=== PATIENT | female | born 1990 | race Caucasian/White ===

== ENCOUNTER 2020-01-08 13:32 | Emergency (ER) | payer MEDICAID ==
[~2020-01-08] VITALS: Ht 154.9 cm; Wt 59.4 kg
[2020-01-08 13:37] VITALS: BP_SYST 117
--- NOTE | 2020-01-08 13:42 | NUR ---
Patient triaged and placed in waiting room. VSS and patient appears in no acute distress at this time. Awaiting available bed, and MD notified of need for MSE.
--- NOTE | 2020-01-08 14:00 | NUR ---
ER Dr. Zuniga in waiting room examining patient.
--- NOTE | 2020-01-08 14:59 | NUR ---
Breast exam performed by Dr. Zuniga with Gerber HENRIQUEZ as female chaparrone. Pt c/o pain in left breast since June s/p breast reduction in [place]. No discharge noted from nipples, no redness, not warm to touch. Breast equal in size.
[2020-01-08 15:05] VITALS: BP_SYST 121
== END 2020-01-08 15:05 | disposition home or self-care (01) ==
LOC: SED 13:32
DX: R07.89 Other chest pain (principal)
CPT/HCPCS: 71046-TC; 93005; 99283